=== PATIENT | female | born 1985 | race Caucasian/White ===

== ENCOUNTER 2025-08-07 20:43 | Emergency (ER) | payer OTHER, SELFPAY ==
[2025-08-07 20:48] VITALS: BP 141/80; PULSE 75; RESP 20; TEMP 36.6; O2SAT 100; BMI 28.8
[2025-08-07 21:15] LABS: Add Manual Diff / Slide Review NO; Hematocrit 32.2 % (36-46); Hemoglobin 10.5 g/dL (12.0-16.0); Lymphocytes Absolute Auto 2900 /uL (1100-4500); Mean Corpuscular HGB Conc 32.8 % (30-36); Mean Corpuscular Hemoglobin 24.1 PG (26-34); Mean Corpuscular Volume 73.5 fL (80-100); Platelet Count 247 X10^3/uL (150-400)
[2025-08-07 21:43] LABS: Alanine Aminotransferase 16 IU/L (<35); Albumin 4.6 g/dL (3.5-5.0); Albumin Globulin Ratio 1.4 (1.0-2.8); Alkaline Phosphatase 58 U/L (38-126); Blood Urea Nitrogen 11 mg/dL (7-17); Calcium 9.1 mg/dL (8.4-10.2); Carbon Dioxide 23 mmol/L (22-32); Chloride 106 mmol/L (98-107); Estimated Glomerular Filt Rate > 60 mL/min (>60); Globulin 3.4 g/dL (1.7-4.1); Glucose 98 mg/dL (70-99); HEMOLYSIS < 15 (0-50); Lipase 169 U/L (23-300); Potassium 3.9 mmol/L (3.4-5.1); Sodium 137 mmol/L (137-145); Total Protein 8.0 g/dL (6.3-8.2)
[2025-08-07 23:16] LABS: Culture Indicated Urine Cult Not Indicated
--- NOTE | 2025-08-07 23:58 | DI.CT.S_ITS ---
PROCEDURE: CT ABDOMEN PELVIS W CON INDICATIONS: RLQ abd pain, HCG neg TECHNIQUE: After the administration of intravenous contrast, axial sections acquired from the lung bases to the pubic symphysis. Coronal and sagittal reformats were performed. For radiation dose reduction, the following was used: automated exposure control, adjustment of mA and/or kV according to patient size. COMPARISON: None. FINDINGS: Image quality: Diagnostic. Lower Chest: No significant findings. ABDOMEN: Liver: No solid mass. Gallbladder: No radiopaque gallstones or wall thickening. Biliary ducts: No biliary dilation. Pancreas: No ductal dilation. Spleen: Size is within normal limits. Adrenal Glands: No adrenal nodules. Kidneys and Ureters: No hydronephrosis. No solid mass. No complex renal cystic lesion which requires follow up. Stomach and Bowel: Normal colonic caliber, without significant wall thickening. Normal caliber appendix. Peritoneum: No abnormal intraperitoneal fluid. No free air. Ventral Wall: No significant ventral hernia. Abdominal Nodes: No retroperitoneal or mesenteric adenopathy by size criteria. Vessels: Aorta and inferior vena cava are normal in size. PELVIS: Pelvic Organs: Right simple appearing cystic structure measuring 3.5 cm. Trace free fluid in the pelvis, likely physiologic. Bladder: No bladder wall thickening, accounting for underdistention. Pelvic Nodes: No enlarged lymph nodes. Miscellaneous: No inguinal hernias are seen. Bones: No aggressive osseous abnormality. IMPRESSION: Normal caliber appendix. No acute abdominopelvic process identified. Right adnexal simple appears cystic structure measuring 3.5 cm. Further evaluation with pelvic ultrasound can be considered if clinically appropriate. Approved by: Traci Torres M.D.,Ph.D. on 08/08/2025 at 1:18
[2025-08-08 01:23] VITALS: BP 139/92; PULSE 79; RESP 18; O2SAT 100
--- NOTE | 2025-08-08 02:06 | ED.ABDPAIN ---
HPI - Abdominal Pain General Chief Complaint: Abdominal Pain Stated Complaint: lower abd/pelvic pain/ Nausea Time Seen by Provider: 08/07/25 23:57 Source: patient Mode of arrival: Wheelchair History of Present Illness HPI narrative: 39-year-old female with history of prior ovarian cysts, has nausea and vomiting with onset of right-sided abdominal pain and perianal pain starting 5:00 p.m., radiating to the right upper back. No painful or frequent urination. No prior appendectomy. No fevers or chills. No diarrhea, black or red stools. Related Data Allergies Allergy/AdvReac Type Severity Reaction Status Date / Time iron infusion Allergy Intermediate Uncoded 08/07/25 20:50 Patient History Social History Smoking Status: Never smoker Smoking Status: Never smoker Exam Narrative Exam Narrative: GENERAL: Well-developed patient, in mild distress. HEAD: Atraumatic. Normocephalic. EYES: Pupils equal round and reactive. Extraocular motions intact. No scleral icterus. No injection or drainage. ENT: Nose without bleeding, purulent drainage. Throat without erythema, tonsillar hypertrophy or exudate. Airway patent. NECK: Trachea midline. Non tender CARDIOVASCULAR: Regular rate and rhythm without murmurs, gallops, or rubs. RESPIRATORY: Clear to auscultation. Breath sounds equal bilaterally. No wheezes, rales, or rhonchi. GASTROINTESTINAL: Abdomen soft, non-tender, nondistended. Right lower quadrant mild tenderness, nondistended, nonrigid, no guarding or rebound, bowel tones unremarkable without rushes or tinkles, bowel tones not particularly increased or decreased. EXTREMITIES: No edema or joint tenderness. BACK: Nontender without deformity or crepitance. No flank tenderness. NEURO: AOx3. Motor functions grossly nonfocal. SKIN: No rash or erythema of visible areas Initial Vital Signs Initial Vital Signs: Vital Signs Temperature 97.9 F 08/07/25 20:48 Pulse Rate 75 08/07/25 20:48 Respiratory Rate 08/07/25 20:48 Blood Pressure 141/80 H 08/07/25 20:48 Pulse Oximetry 100 08/07/25 20:48 Oxygen Delivery Method Room Air 08/07/25 20:48 Course Orders Ordered: ED Orders 08/07/25 21:06 Complete Blood Count AUTO DIFF Stat Comprehensive Metabolic Panel Stat Lipase Stat 08/07/25 22:42 Urine Culture Stat Urine Microscopic Stat 08/07/25 23:58 CT abdomen pelvis w con Stat 08/08/25 02:20 US pelvic complete Stat Discontinued Medications Ketorolac Tromethamine (Ketorolac 30 Mg/Ml Vial) 15 mg IV NOW ONE Stop: 08/08/25 02:12 Last Admin: 08/08/25 02:27 Dose: 15 mg Documented By: MELECIO Ondansetron HCl (Ondansetron 4 Mg/2 Ml Inj) 4 mg IV NOW PRN PRN Reason: Nausea And Vomiting Ondansetron HCl (Ondansetron 4 Mg Odt) 4 mg PO NOW PRN PRN Reason: Nausea And Vomiting Vital Signs Vital signs: Vital Signs - 8 hr 08/08/25 01:23 08/08/25 05:05 Pulse Rate 79 84 Respiratory Rate 18 16 Blood Pressure 139/92 H 128/78 Pulse Oximetry 100 100 Oxygen Delivery Method Room Air MDM - Abdominal Pain Lab Data Attestation: I reviewed the patient's lab results. Lab results narrative: White blood cell count 9300, hemoglobin 10.5, platelets adequate. Glucose 98. Normal renal function, serum CO2, electrolytes. Liver functions and lipase normal. Urinalysis with many bacteria but no inflammatory cells. Urine culture was not triggered. Requested urine culture. Urine HCG negative. 08/07/25 21:06 08/07/25 21:06 Labs: Lab Results 08/07/25 08/07/25 Range/Units 21:06 22:42 WBC 9.3 (4.5-11.0) X10^3/uL RBC 4.37 (4.0-5.2) X10^6/uL Hgb 10.5 L (12.0-16.0) g/dL Hct 32.2 L (36-46) % MCV 73.5 L (80-100) fL MCH 24.1 L (26-34) PG MCHC 32.8 (30-36) % RDW 15.7 H (11.6-14.8) % Plt Count 247 (150-400) X10^3/uL Neut % (Auto) 55.0 (50-75) % Lymph % (Auto) 31.4 (25-40) % [place] % (Auto) 11.3 (3-14) % Eos % (Auto) 1.4 L (2-4) % Baso % (Auto) 0.9 (0-2) % Neut # (Auto) 5100 (1572-1597) /uL Lymph # (Auto) 2900 (4602-6907) /uL [place] # (Auto) 1100 H (0-900) /uL Eos # (Auto) 100 (0-450) /uL Baso # (Auto) 100 (0-100) /uL Sodium 137 (137-145) mmol/L Potassium 3.9 (3.4-5.1) mmol/L Chloride 106 (98-107) mmol/L Carbon Dioxide 23 (22-32) mmol/L BUN 11 (7-17) mg/dL Creatinine 0.81 (0.52-1.04) mg/dL Estimated GFR > 60 (>60) mL/min BUN/Creatinine Ratio 13.6 (6-22) Glucose 98 (70-99) mg/dL Calcium 9.1 (8.4-10.2) mg/dL Total Bilirubin 0.2 (0.2-1.3) mg/dL AST 25 (14-36) IU/L ALT 16 (<35) IU/L Alkaline Phosphatase 58 (38-126) U/L Total Protein 8.0 (6.3-8.2) g/dL Albumin 4.6 (3.5-5.0) g/dL Globulin 3.4 (1.7-4.1) g/dL Albumin/Globulin Ratio 1.4 (1.0-2.8) Lipase 169 (23-300) U/L Urine RBC None seen (0-5/HPF) Urine WBC 0-1/hpf (0-5/HPF) Ur Squamous Epith Cells 0-1 /hpf (0-5/HPF) Urine Bacteria Many (>30) H (None) Ur Culture Indicated? Cult not indicated Vol Urine Centrifuged 10ml (spun) Point of care testing: Point of Care Testing Test Results Negative Urine Dip Bedside Urine Glucose Negative Bedside Urine Bilirubin - Negative Bedside Urine Ketone - Negative Urine Specific [place] 1.015 Bedside Urine Occult Blood ++ Bedside Urine pH 7.5 Bedside Urine Protein - Negative Bedside Urine Urobilinogen - Negative Bedside Urine Nitrite + Positive Bedside Urine Leukocytes - Negative Esterase Imaging Data CT scan - abdomen/pelvis: Radiologist's Impression: [address] [address] [address] Scan Report Signed Patient: Nakita Paez MR#: [id number] : 1985 Acct:[id number] Age/Sex: 39 / F Date of Service: 08/07/25 Loc: ED Accession Number: [id number] Procedure: CT abdomen pelvis w con Ordering Provider: Maicol Dejesus MD PROCEDURE: CT ABDOMEN PELVIS W CON INDICATIONS: RLQ abd pain, HCG neg TECHNIQUE: After the administration of intravenous contrast, axial sections acquired from the lung bases to the pubic symphysis. Coronal and sagittal reformats were performed. For radiation dose reduction, the following was used: automated exposure control, adjustment of mA and/or kV according to patient size. COMPARISON: None. FINDINGS: Image quality: Diagnostic. Lower Chest: No significant findings. ABDOMEN: Liver: No solid mass. Gallbladder: No radiopaque gallstones or wall thickening. Biliary ducts: No biliary dilation. Pancreas: No ductal dilation. Spleen: Size is within normal limits. Adrenal Glands: No adrenal nodules. Kidneys and Ureters: No hydronephrosis. No solid mass. No complex renal cystic lesion which requires follow up. Stomach and Bowel: Normal colonic caliber, without significant wall thickening. Normal caliber appendix. Peritoneum: No abnormal intraperitoneal fluid. No free air. Ventral Wall: No significant ventral hernia. Abdominal Nodes: No retroperitoneal or mesenteric adenopathy by size criteria. Vessels: Aorta and inferior vena cava are normal in size. PELVIS: Pelvic Organs: Right simple appearing cystic structure measuring 3.5 cm. Trace free fluid in the pelvis, likely physiologic. Bladder: No bladder wall thickening, accounting for underdistention. Pelvic Nodes: No enlarged lymph nodes. Miscellaneous: No inguinal hernias are seen. Bones: No aggressive osseous abnormality. IMPRESSION: Normal caliber appendix. No acute abdominopelvic process identified. Right adnexal simple appears cystic structure measuring 3.5 cm. Further evaluation with pelvic ultrasound can be considered if clinically appropriate. Approved by: Traci Torres M.D.,Ph.D. on 08/08/2025 at 1:18 MDM Narrative Medical decision making narrative: 39-year-old female with right lower quadrant abdominal discomfort, history of ovarian cyst. No prior appendectomy. No vaginal bleeding, does not believe herself to be . Afebrile, sirs screen negative. DDx consider recurrence of ovarian cyst on the right side, ovarian torsion, PID, ectopic , appendicitis, colitis, diverticulitis, ureteral stone, UTI, other. Labs pending. Lab data: White blood cell count 9300, hemoglobin 10.5, platelets adequate. Glucose 98. Normal renal function, serum CO2, electrolytes. Liver functions and lipase normal. Urinalysis with many bacteria but no inflammatory cells. Urine culture was not triggered. Requested urine culture. Urine HCG negative. CT abdomen and pelvis. IMPRESSION: Normal caliber appendix. No acute abdominopelvic process identified. Right adnexal simple appears cystic structure measuring 3.5 cm. Further evaluation with pelvic ultrasound can be considered if clinically appropriate. See radiology report. IV Toradol, some improvement of pain. Patient we would like further imaging with ultrasound of the pelvis to rule out torsion after discussion of CT findings and limitations. Ultrasound pelvis ordered. Keep NPO. Ultrasound pelvis. Impressions: ?Normal sonographic appearance of the uterus, endometrium, and bilateral adnexae with follicular activity in the right ovary.? See tele radiology report. In the text there is mentioned of right ovary measuring 5.2 x 2.8 x 3.5 cm, with dominant follicle in the right ovary measuring 2.9 x 2.8 x 2.9 cm. No free fluid mentioned. Blood flow demonstrated to both ovaries. Patient feels better after IV Toradol. Copy of CT report and then ultrasound reports provided with explanation. She feels better we would like to go home. Can consider [id number] ibuprofen to take as needed. Home with . Return precautions discussed. Discharge Plan Departure Patient Disposition: Home Clinical Impression: Follicular cyst of right ovary, Right lower quadrant abdominal pain Instructions: DI for Ovarian Cyst Activity Restrictions/Additional Instructions: Right lower abdominal discomfort, history of ovarian cysts. No prior appendix surgery. CT scan abdomen and pelvis showed no evidence of acute appendicitis, did show 3 cm diameter appearance right cystic structure in the right ovary region, no free fluid. Ultrasound of the pelvis confirmed similar size follicular cyst in the right ovary region, good blood flow to both ovaries, no evidence for ovarian torsion at this time, also no free fluid suggesting any recent/ongoing rupture or bleeding from the cystic structure. You had IV Toradol and improved symptoms. Consider use of [id number] ibuprofen or naproxen for control of pain. Recheck with your regular doctor if symptoms are not improving in the next couple of days. Return to this/nearest emergency department for any change worsening symptoms or any concerns prior. Stand Alone Forms: Patient Portal/API
--- NOTE | 2025-08-08 02:20 | DI.US.S_ITS ---
PROCEDURE: US PELVIC COMPLETE INDICATIONS: RLQ abd pain, hcg neg, 3.5cm cyst, no FF, eval for torsion TECHNIQUE: Real-time scanning was performed of the pelvic organs, with image documentation. Additional endovaginal scanning was necessary due to incomplete visualization of the adnexal and endometrial structures by transabdominal scanning. COMPARISON: [facility], CT, CT ABDOMEN PELVIS W CON, 08/08/2025, 0:03. FINDINGS: Uterus: Uterus is anteverted and normal in size at 10.4 x 5.7 x 6 cm. The myometrium is homogeneous. The endometrium measures 11 mm combined thickness. Ovaries: The right ovary measures 5.2 x 2.8 x 3.5 cm, with a calculated ovarian volume of for cc. The left ovary measures 3.5 x 2.1 x 1.9 cm, with a calculated ovarian volume of 2.2 cc. The ovaries have a normal sonographic appearance. Less than 12 follicles can be seen in each ovary. No adnexal masses are seen. A right ovarian 2.9 x 2.8 x 2.9 cm follicle. Other: No pathologic free abdominal or pelvic fluid. IMPRESSION: Normal right ovarian 2.9 cm follicle. No evidence of ovarian torsion. Otherwise unremarkable pelvic ultrasound. Findings are concordant preliminary interpretation provided by [facility]. We strive to produce accurate, complete, and clear reports of imaging services. To assist us in improving patient care, this report was composed using standard report templates and voice recognition software. Therefore, it may contain abnormal punctuation, insertions and/or omissions. Occasional wrong-word or sound-alike substitutions may occur. Though we review the report and make efforts to correct it, we do recommend that the report be read carefully in proper context to recognize any text inaccuracies. Dictated by: Fracisco Wallace M.D. on 08/08/2025 at 8:09 Approved by: Fracisco Wallace M.D. on 08/08/2025 at 8:12
[2025-08-08] MEDS: KETOROLAC 30 MG/ML VIAL 15 MG IV (02:27)
[2025-08-08 05:05] VITALS: BP 128/78; PULSE 84; RESP 16; O2SAT 100
== END 2025-08-08 05:06 | disposition home or self-care (01) ==
PROVIDERS: Emergency Medicine; Emergency Provider Emergency Medicine
DX: R10.31 Right lower quadrant pain (principal); N83.01 Follicular cyst of right ovary; R11.2 Nausea with vomiting, unspecified
CPT/HCPCS: 36415; 74177; 76830; 76856; 80053; 81003; 81015; 81025; 83690; 85025; 87077; 87086; 87186; 96374; 99284; J1885; Q9967